=== PATIENT | female | born 1940 | race Caucasian/White ===

== ENCOUNTER → 2018-05-03 | Outpatient (CLI) | payer OTHER | END | disposition home or self-care (01) | LOC: OIH 15:20 | PROVIDERS: ATTEND Internal Medicine | DX: S33.130A Subluxation of L3/L4 lumbar vertebra, initial encounter (principal); M47.816 Spondylosis without myelopathy or radiculopathy, lumbar region; X58.XXXA Exposure to other specified factors, initial encounter; Y93.89 Activity, other specified; Y92.89 Other specified places as the place of occurrence of the external cause; Y99.8 Other external cause status | CPT/HCPCS: 72100 ==

== ENCOUNTER → 2019-07-25 | Outpatient (CLI) | payer OTHER | END | disposition home or self-care (01) | LOC: OIH 14:55 | PROVIDERS: ATTEND Internal Medicine | DX: J20.9 Acute bronchitis, unspecified (principal) | CPT/HCPCS: 71046 ==

== ENCOUNTER 2020-11-11 14:03 | Inpatient (IN) | payer OTHER ==
[~2020-11-11] VITALS: Ht 162.6 cm; Wt 72.8 kg
[2020-11-11 14:12] VITALS: BP 167/77
[2020-11-11 14:28] LABS: BASOPHILS % (AUTO) 0.3 % (0.0-5.0); EOSINOPHILS % (AUTO) 0.8 % (0.0-8.0); HEMATOCRIT 34.4 % (36-48); LYMPHOCYTES % (AUTO) 24.2 % (21.0-51.0); MEAN CORPUSCULAR HEMOGLOBIN 30.7 pg (27.0-33.0); MEAN CORPUSCULAR HGB CONC 34.6 g/dL (32.0-36.0); MEAN CORPUSCULAR VOLUME 88.7 fL (79-99); MONOCYTES % (AUTO) 6.1 % (3.0-13.0); NEUTROPHILS % (AUTO) 68.3 % (40.0-77.0); PLATELET COUNT (AUTO) 174 K/uL (130-400); RED BLOOD CELL COUNT(AUTO) 3.88 MIL/uL (4.00-5.50); WHITE BLOOD COUNT (AUTO) 7.6 K/uL (4.8-10.8)
[2020-11-11 14:35] LABS: POTASSIUM 3.3 mmol/L (3.5-5.1)
[2020-11-11] MEDS ORDERED: MORPHINE 5 MG/ML VIAL (5MG OR GREATER DOSE) IV SCH (14:38)
[2020-11-11] MEDS ORDERED: ONDANSETRON 4MG INJ ONE (14:39)
[2020-11-11] MEDS ORDERED: ONDANSETRON 4MG INJ IVP SCH (14:39)
[2020-11-11 14:40] LABS: ALBUMIN 3.3 g/dL (3.5-5.0); BILIRUBIN,TOTAL 0.4 mg/dL (0.2-1.0); TOTAL PROTEIN, SERUM 6.8 g/dL (6.0-8.3)
[2020-11-11] MEDS ORDERED: MORPHINE 5 MG/ML VIAL (5MG OR GREATER DOSE) ONE (14:40)
[2020-11-11] MEDS ORDERED: POTASSIUM BICARB/CIT AC 25 MEQ TABLET.EFF PO ONE (15:30)
[2020-11-11 16:09] LABS: APPEARANCE,URINE Clear (CLEAR); BILIRUBIN,URINE Negative (NEGATIVE); COLOR,URINE Yellow (YELLOW); GLUCOSE, URINE (UA) Negative (NEGATIVE); KETONES,URINE Negative (NEGATIVE); LEUKOCYTE ESTERASE ,URINE Negative (NEGATIVE); NITRATE,URINE Negative (NEGATIVE); OCCULT BLOOD,URINE Negative (NEGATIVE); PH,URINE 5.5 (5.0-8.0); PROTEIN,URINE Negative (NEGATIVE)
[2020-11-11] MEDS ORDERED: POTASSIUM BICARB/CIT AC 25 MEQ TABLET.EFF ONE (16:40)
[2020-11-11] MEDS ORDERED: ONDANSETRON 4MG INJ IVP PRN (18:00)
[2020-11-11] MEDS: 1/2 NS 1000ML 1,000 ML IV SCH (18:15)
[2020-11-11] MEDS: HYDROMORPHONE 0.5 MG SYG (0.5MG/0.5ML) IVP PRN ×2 (18:15→21:57)
[2020-11-11] MEDS ORDERED: MORPHINE 5 MG/ML VIAL (5MG OR GREATER DOSE) IM PRN (18:30)
[2020-11-11 19:56] VITALS: BP 114/77
[2020-11-11] MEDS ORDERED: FAMOTIDINE 20MG TAB ONE (20:52)
[2020-11-11 22:21] VITALS: BP 121/33
[2020-11-11 23:28] VITALS: BP 120/48
[2020-11-12 00:33] VITALS: BP 133/66
[2020-11-12] MEDS: HYDROMORPHONE 0.5 MG SYG (0.5MG/0.5ML) IVP PRN ×5 (01:06→22:39)
[2020-11-12] MEDS: 1/2 NS 1000ML 1,000 ML IV SCH ×2 (03:23→17:18)
[2020-11-12 04:43] VITALS: BP 121/60
[2020-11-12 06:12] LABS: HEMATOCRIT 28.8 % (36-48); MEAN CORPUSCULAR HEMOGLOBIN 30.8 pg (27.0-33.0); MEAN CORPUSCULAR HGB CONC 33.3 g/dL (32.0-36.0); MEAN CORPUSCULAR VOLUME 92.3 fL (79-99); RED BLOOD CELL COUNT(AUTO) 3.12 MIL/uL (4.00-5.50); RED CELL DISTRIBUTION WIDTH 13.3 % (11.0-15.5); WHITE BLOOD COUNT (AUTO) 8.1 K/uL (4.8-10.8)
[2020-11-12 06:39] LABS: ALBUMIN 3.1 g/dL (3.5-5.0); BILIRUBIN,TOTAL 0.4 mg/dL (0.2-1.0); POTASSIUM 4.2 mmol/L (3.5-5.1); TOTAL PROTEIN, SERUM 6.1 g/dL (6.0-8.3)
[2020-11-12 08:00] VITALS: BP 119/52
[2020-11-12 12:00] VITALS: BP 108/44
[2020-11-12] MEDS ORDERED: VALS1TAB76 PO (15:49)
[2020-11-12] MEDS ORDERED: VALS80TA30 PO (15:49)
[2020-11-12] MEDS ORDERED: DULO30CA52 PO (15:49)
[2020-11-12 16:00] VITALS: BP 121/48
[2020-11-12] MEDS: ENOXAPARIN SODIUM 40 MG/0.4 ML SYRINGE SQ SCH (17:16)
[2020-11-12 20:08] VITALS: BP 115/54
[2020-11-13] VITALS (26 sets, daily range): BP systolic 105–138; BP diastolic 39–77
[2020-11-13] MEDS: 1/2 NS 1000ML 1,000 ML IV SCH ×3 (01:13→20:53)
[2020-11-13] MEDS: HYDROMORPHONE 0.5 MG SYG (0.5MG/0.5ML) IVP PRN ×3 (08:51→23:12)
[2020-11-13] MEDS: ENOXAPARIN SODIUM 40 MG/0.4 ML SYRINGE SQ SCH (09:00)
[2020-11-13] MEDS ORDERED: CEFAZOLIN SODIUM 1 GM VIAL ONE (10:27)
[2020-11-13] MEDS ORDERED: PROPOFOL 10 MG/ML 20ML VIAL IV ONE (10:41)
[2020-11-13] MEDS ORDERED: SUCCINYLCHOLINE CHLORIDE 20 MG/ML 10 ML VIAL ONE (10:41)
[2020-11-13] MEDS ORDERED: ROCURONIUM 10MG/1ML SYR 10 MG/ML ML ONE (10:41)
[2020-11-13] MEDS ORDERED: FENTANYL CITRATE PF 50 MCG/1 ML 2ML VIAL ONE (10:41)
[2020-11-13] MEDS ORDERED: LIDOCAINE PF 100MG/5ML (2%) SYRINGE 5ML ONE (10:41)
[2020-11-13] MEDS ORDERED: ROPIVACAINE 0.5% 5MG/ML 30ML IJ ONE (10:47)
[2020-11-13] MEDS ORDERED: EPHEDRINE SULFATE 50 MG/ML AMPULE ONE (11:28)
[2020-11-13] MEDS ORDERED: GLYCOPYRROLATE 1 MG/5 ML SYRINGE ONE (12:07)
[2020-11-13] MEDS ORDERED: NEOSTIGMINE 5MG/5ML SYR IV ONE (12:08)
[2020-11-13] MEDS ORDERED: ESMOLOL HCL 10 MG/ML 10 ML VIAL ONE (12:10)
[2020-11-13] MEDS ORDERED: LACTATED RINGERS 1000ML 1,000 ML IV ONE (13:03)
[2020-11-14] MEDS: HYDROMORPHONE 0.5 MG SYG (0.5MG/0.5ML) IVP PRN ×4 (02:29→20:05)
[2020-11-14 05:16] VITALS: BP 134/56
[2020-11-14] MEDS: 1/2 NS 1000ML 1,000 ML IV SCH ×2 (06:00→16:19)
[2020-11-14 08:00] VITALS: BP 123/55
[2020-11-14] MEDS: ENOXAPARIN SODIUM 40 MG/0.4 ML SYRINGE SQ SCH (08:47)
[2020-11-14 12:00] VITALS: BP 116/44
[2020-11-14 16:00] VITALS: BP 113/44
[2020-11-14 20:00] VITALS: BP 131/55
[2020-11-15] VITALS: BP 134/57
[2020-11-15] MEDS: 1/2 NS 1000ML 1,000 ML IV SCH ×2 (02:00→12:00)
[2020-11-15 04:00] VITALS: BP 133/48
[2020-11-15 07:53] VITALS: BP 137/47
[2020-11-15 09:01] LABS: BASOPHILS % (AUTO) 0.2 % (0.0-5.0); EOSINOPHILS % (AUTO) 0.6 % (0.0-8.0); LYMPHOCYTES % (AUTO) 20.1 % (21.0-51.0); MEAN CORPUSCULAR HEMOGLOBIN 30.9 pg (27.0-33.0); MEAN CORPUSCULAR HGB CONC 34.3 g/dL (32.0-36.0); MONOCYTES % (AUTO) 10.2 % (3.0-13.0); NEUTROPHILS % (AUTO) 68.6 % (40.0-77.0); PLATELET COUNT (AUTO) 139 K/uL (130-400); RED CELL DISTRIBUTION WIDTH 12.9 % (11.0-15.5); WHITE BLOOD COUNT (AUTO) 6.6 K/uL (4.8-10.8)
[2020-11-15 09:20] LABS: CREATININE 0.6 mg/dL (0.5-1.5); POTASSIUM 3.5 mmol/L (3.5-5.1)
[2020-11-15 09:25] LABS: ALBUMIN 2.3 g/dL (3.5-5.0); BILIRUBIN,TOTAL 0.4 mg/dL (0.2-1.0); HEMATOCRIT 19.8 % (36-48); TOTAL PROTEIN, SERUM 5.7 g/dL (6.0-8.3)
[2020-11-15] MEDS: HYDROMORPHONE 0.5 MG SYG (0.5MG/0.5ML) IVP PRN ×2 (09:30→20:55)
[2020-11-15] MEDS: ENOXAPARIN SODIUM 40 MG/0.4 ML SYRINGE SQ SCH (09:33)
[2020-11-15 10:26] LABS: BASOPHILS % (AUTO) 0.2 % (0.0-5.0); EOSINOPHILS % (AUTO) 0.5 % (0.0-8.0); HEMATOCRIT 21.9 % (36-48); LYMPHOCYTES % (AUTO) 19.4 % (21.0-51.0); MEAN CORPUSCULAR HEMOGLOBIN 30.7 pg (27.0-33.0); MEAN CORPUSCULAR HGB CONC 33.8 g/dL (32.0-36.0); MEAN CORPUSCULAR VOLUME 90.9 fL (79-99); MONOCYTES % (AUTO) 7.5 % (3.0-13.0); PLATELET COUNT (AUTO) 151 K/uL (130-400); RED BLOOD CELL COUNT(AUTO) 2.41 MIL/uL (4.00-5.50); WHITE BLOOD COUNT (AUTO) 8.1 K/uL (4.8-10.8)
[2020-11-15 11:34] VITALS: BP 112/50
[2020-11-15 16:00] VITALS: BP 128/54
[2020-11-15 20:00] VITALS: BP 134/57
[2020-11-15] MEDS: LACTULOSE 20 GM/30 ML UDCUP PO PRN (20:02)
[2020-11-16] VITALS (7 sets, daily range): BP systolic 128–161; BP diastolic 54–62
[2020-11-16 03:43] LABS: BASOPHILS % (AUTO) 0.2 % (0.0-5.0); EOSINOPHILS % (AUTO) 2.2 % (0.0-8.0); LYMPHOCYTES % (AUTO) 34.3 % (21.0-51.0); MEAN CORPUSCULAR HEMOGLOBIN 30.8 pg (27.0-33.0); MEAN CORPUSCULAR HGB CONC 33.7 g/dL (32.0-36.0); MEAN CORPUSCULAR VOLUME 91.3 fL (79-99); MONOCYTES % (AUTO) 9.5 % (3.0-13.0); NEUTROPHILS % (AUTO) 53.5 % (40.0-77.0); PLATELET COUNT (AUTO) 153 K/uL (130-400); RED BLOOD CELL COUNT(AUTO) 2.08 MIL/uL (4.00-5.50); RED CELL DISTRIBUTION WIDTH 13.2 % (11.0-15.5); WHITE BLOOD COUNT (AUTO) 5.8 K/uL (4.8-10.8)
[2020-11-16 03:54] LABS: CREATININE 0.6 mg/dL (0.5-1.5); POTASSIUM 3.4 mmol/L (3.5-5.1)
[2020-11-16] MEDS: LACTULOSE 20 GM/30 ML UDCUP PO PRN (06:14)
[2020-11-16] MEDS ORDERED: POTASSIUM CHLORIDE 10% ELIXIR 20 MEQ/15 ML UDCUP PO PRN (07:30)
[2020-11-16] MEDS ORDERED: POTASSIUM CHLORIDE 20MEQ/100ML 100 ML IV PRN (07:30)
[2020-11-16] MEDS ORDERED: LIDOCAINE HCL-MPF 1% 2ML VIAL IV PRN (07:30)
[2020-11-16] MEDS: LOSARTAN 100 MG TABLET PO SCH (10:33)
[2020-11-16] MEDS: DULOXETINE HCL 30 MG CAP PO SCH (10:33)
[2020-11-16] MEDS: ENOXAPARIN SODIUM 40 MG/0.4 ML SYRINGE SQ SCH (10:33)
[2020-11-16] MEDS: HYDROCHLOROTHIAZIDE 25 MG TABLET PO SCH (10:34)
[2020-11-16] MEDS: KCL 20 MEQ ERTAB PO PRN (10:34)
[2020-11-16] MEDS: HYDROMORPHONE 0.5 MG SYG (0.5MG/0.5ML) IVP PRN (11:45)
[2020-11-16] MEDS: ACETAMINOPHEN 325 MG TAB PO PRN (20:16)
[2020-11-16] MEDS ORDERED: LOSARTAN 50 MG TABLET PO SCH (21:00)
[2020-11-17 03:54] LABS: BASOPHILS % (AUTO) 0.5 % (0.0-5.0); EOSINOPHILS % (AUTO) 2.5 % (0.0-8.0); HEMATOCRIT 27.2 % (36-48); LYMPHOCYTES % (AUTO) 25.3 % (21.0-51.0); MEAN CORPUSCULAR HGB CONC 33.5 g/dL (32.0-36.0); MEAN CORPUSCULAR VOLUME 89.8 fL (79-99); MONOCYTES % (AUTO) 8.8 % (3.0-13.0); NEUTROPHILS % (AUTO) 62.5 % (40.0-77.0); PLATELET COUNT (AUTO) 175 K/uL (130-400); RED BLOOD CELL COUNT(AUTO) 3.03 MIL/uL (4.00-5.50); RED CELL DISTRIBUTION WIDTH 13.4 % (11.0-15.5); WHITE BLOOD COUNT (AUTO) 5.5 K/uL (4.8-10.8)
[2020-11-17 03:59] VITALS: BP 144/57
[2020-11-17 07:55] VITALS: BP 154/66
[2020-11-17] MEDS: ACETAMINOPHEN 325 MG TAB PO PRN ×2 (08:07→20:25)
[2020-11-17] MEDS ORDERED: HYDROMORPHONE 0.5 MG SYG (0.5MG/0.5ML) IVP PRN (09:30)
[2020-11-17] MEDS: ENOXAPARIN SODIUM 40 MG/0.4 ML SYRINGE SQ SCH (09:47)
[2020-11-17] MEDS: DULOXETINE HCL 30 MG CAP PO SCH (09:47)
[2020-11-17] MEDS: LOSARTAN 100 MG TABLET PO SCH (09:47)
[2020-11-17] MEDS: HYDROCHLOROTHIAZIDE 25 MG TABLET PO SCH (09:47)
[2020-11-17] MEDS ORDERED: HYDROMORPHONE 0.5 MG SYG (0.5MG/0.5ML) ONE (10:32)
[2020-11-17] MEDS: HYDROMORPHONE 0.5 MG SYG (0.5MG/0.5ML) IVP PRN (10:40)
[2020-11-17 11:05] VITALS: BP 133/55
[2020-11-17 15:45] VITALS: BP 135/54
[2020-11-17 20:43] VITALS: BP 147/56
[2020-11-17 23:37] VITALS: BP 150/63
[2020-11-18 03:50] VITALS: BP 169/69
[2020-11-18 08:00] VITALS: BP 121/55
[2020-11-18] MEDS: HYDROCHLOROTHIAZIDE 25 MG TABLET PO SCH (08:28)
[2020-11-18] MEDS: LOSARTAN 100 MG TABLET PO SCH (08:28)
[2020-11-18] MEDS: DULOXETINE HCL 30 MG CAP PO SCH (08:28)
[2020-11-18] MEDS: ENOXAPARIN SODIUM 40 MG/0.4 ML SYRINGE SQ SCH (08:29)
[2020-11-18 12:00] VITALS: BP 129/57
[2020-11-18] MEDS: HYDROMORPHONE 0.5 MG SYG (0.5MG/0.5ML) IVP PRN (12:49)
[2020-11-18] MEDS: ACETAMINOPHEN 325 MG TAB PO PRN (14:10)
[2020-11-18 16:00] VITALS: BP 126/59
[2020-11-18 20:11] VITALS: BP 132/57
[2020-11-18 23:46] VITALS: BP 139/56
[2020-11-19 03:59] VITALS: BP 112/61
[2020-11-19 08:00] VITALS: BP 140/58
[2020-11-19] MEDS: LOSARTAN 100 MG TABLET PO SCH (08:45)
[2020-11-19] MEDS: DULOXETINE HCL 30 MG CAP PO SCH (08:45)
[2020-11-19] MEDS: ENOXAPARIN SODIUM 40 MG/0.4 ML SYRINGE SQ SCH (08:46)
[2020-11-19] MEDS: HYDROCHLOROTHIAZIDE 25 MG TABLET PO SCH (08:46)
[2020-11-19] MEDS: KCL 20 MEQ ERTAB PO PRN ×2 (08:46→17:02)
[2020-11-19] MEDS: HYDROMORPHONE 0.5 MG SYG (0.5MG/0.5ML) IVP PRN (09:54)
[2020-11-19 12:00] VITALS: BP 101/49
[2020-11-19 20:00] VITALS: BP 132/58
[2020-11-20] VITALS: BP 132/52
[2020-11-20 04:00] VITALS: BP 131/47
[2020-11-20 07:58] VITALS: BP 131/50
[2020-11-20] MEDS: ACETAMINOPHEN 325 MG TAB PO PRN (08:15)
[2020-11-20] MEDS: HYDROCHLOROTHIAZIDE 25 MG TABLET PO SCH (09:58)
[2020-11-20] MEDS: LOSARTAN 100 MG TABLET PO SCH (09:58)
[2020-11-20] MEDS: DULOXETINE HCL 30 MG CAP PO SCH (09:58)
[2020-11-20] MEDS: ENOXAPARIN SODIUM 40 MG/0.4 ML SYRINGE SQ SCH (09:59)
[2020-11-20 10:58] VITALS: BP 123/55
== END 2020-11-20 13:28 | DRG 481 ==
LOC: EDH 14:03 → EDHIP 14:04 → 4AH 11-12 00:06
PROVIDERS: ADMIT Internal Medicine; ATTEND Internal Medicine
PROC: 0QH636Z Insertion of Intramedullary Internal Fixation Device into Right Upper Femur, Percutaneous Approach (ICD-10-PCS; principal; 2020-11-13 12:00)
PROC: 30233N1 Transfusion of Nonautologous Red Blood Cells into Peripheral Vein, Percutaneous Approach (ICD-10-PCS; 2020-11-16)
DX: S72.141A Displaced intertrochanteric fracture of right femur, initial encounter for closed fracture (principal); D62 Acute posthemorrhagic anemia; I11.9 Hypertensive heart disease without heart failure; W01.0XXA Fall on same level from slipping, tripping and stumbling without subsequent striking against object, initial encounter; S09.90XA Unspecified injury of head, initial encounter; M19.90 Unspecified osteoarthritis, unspecified site; E66.9 Obesity, unspecified; Y93.01 Activity, walking, marching and hiking; Y92.89 Other specified places as the place of occurrence of the external cause; Y99.8 Other external cause status; Z68.27 Body mass index [BMI] 27.0-27.9, adult
CPT/HCPCS: 36415; 36430; 70450; 71045; 72125; 73502; 73503; 73560; 80048; 80053; 81003; 84484; 85025; 85027; 86850; 86900; 86901; 86923; 93005; 93306; 97039; G0378; J0330; J0690; J1170; J1650; J2001; J2270; J2405; J2704; J2710; J2795; J3010; J3490; J7030; J7120; P9016

== ENCOUNTER → 2024-06-27 | Outpatient (CLI) | payer OTHER ==
[~2024-06-27] MED LIST: DULO30CA52 PO; VALS1TAB76 PO; VALS80TA30 PO
--- NOTE | 2024-06-27 14:06 | HMCIMG ---
CHEST 2VWS HISTORY: Acute bronchitis COMPARISON: 11/11/2020 FINDINGS: Frontal and lateral projections of the chest were obtained. Prominent interstitial markings are seen. There is no acute pulmonary infiltrates or failure. The heart is borderline enlarged. No evidence of aortic calcification is seen. Degenerative changes are seen of the thoracolumbar spine. IMPRESSION: 1. No acute pulmonary infiltrates.
== END | disposition home or self-care (01) ==
LOC: RAH 12:54
PROVIDERS: ATTEND Internal Medicine
DX: J20.9 Acute bronchitis, unspecified (principal); R05.9 Cough, unspecified; M47.815 Spondylosis without myelopathy or radiculopathy, thoracolumbar region
CPT/HCPCS: 71046